=== PATIENT | female | born 1990 | race Two or more races ===

== ENCOUNTER 2024-03-26 13:23 | Outpatient (CLI) | payer OTHER | END 2024-03-26 13:35 | disposition home or self-care (01) | LOC: NST 13:23 | PROVIDERS: ATTEND Obstetrics & Gynecology Gynecology | DX: Z34.83 Encounter for supervision of other normal pregnancy, third trimester (principal) ==

== ENCOUNTER 2024-03-31 07:13 | Outpatient (CLI) | payer OTHER | END 2024-03-31 07:40 | disposition home or self-care (01) | LOC: NST 07:13 | PROVIDERS: ATTEND Obstetrics & Gynecology Gynecology | DX: Z34.83 Encounter for supervision of other normal pregnancy, third trimester (principal) ==

== ENCOUNTER 2024-04-09 09:15 | Inpatient (IN) | payer OTHER ==
[~2024-04-09] VITALS: Ht 167.6 cm; Wt 2.7 kg
[2024-04-27 16:41] VITALS: BP 117/70
[2024-04-27] MEDS ORDERED: MISOPROSTOL 25 MCG TABLET ONE (17:25)
[2024-04-27 17:29] LABS: HEMATOCRIT 36.1 % (36.0-45.00); HEMOGLOBIN 12.4 g/dL (12.0-15.00); MEAN CORPUSCULAR HEMOGLOBIN 31.5 pg (27.00-32.0); MEAN CORPUSCULAR HGB CONC 34.2 g/dl (32.0-36.0); PLATELET COUNT 234 K/uL (150-450); RED BLOOD COUNT 3.93 M/uL (4.00-6.00); RED CELL DISTRIBUTION WIDTH 14.1 % (11.5-14.5)
[2024-04-27 17:55] LABS: INR 0.96; PARTIAL THROMBOPLASTIN TIME 24.6 SECONDS (22.0-34.0); PROTHROMBIN TIME 10.5 SECONDS (9.0-11.5)
[2024-04-27 17:58] LABS: ALBUMIN 2.8 gm/dL (3.4-5.0); BILIRUBIN TOTAL 0.2 mg/dL (0.3-1.2); CALCIUM 8.7 mg/dL (8.5-10.1); CREATININE SERUM 0.57 mg/dL (0.55-1.02); GFR 120.01; GLOBULINA 3.9 G/DL (2.4-3.5); POTASSIUM 4.46 mEq/L (3.5-5.1); TOTAL PROTEIN 6.7 gm/dL (6.4-8.2)
[2024-04-27] MEDS ORDERED: PRENATAL TABLE1 EAC1 PO (18:03)
[2024-04-27] MEDS ORDERED: MISOPROSTOL 25 MCG TABLET VAG ONE (18:15)
[2024-04-27 20:26] VITALS: BP 110/64
[2024-04-27] MEDS ORDERED: MORPHINE SULFATE 4 MG/ML CARTRIDGE IV PRN (23:15)
[2024-04-27 23:26] VITALS: BP 116/76
[2024-04-28 03:12] VITALS: BP 102/54
[2024-04-28] MEDS ORDERED: OXYTOCIN 500 ML IV ONE (07:00)
[2024-04-28 07:23] VITALS: BP 116/65
[2024-04-28 12:00] VITALS: BP 114/65
[2024-04-28 15:23] VITALS: BP 115/66
[2024-04-28] MEDS ORDERED: CEFAZOLIN SODIUM 1,000 MG VIAL ONE (16:56)
[2024-04-28] MEDS ORDERED: OXYTOCIN 10 UNITS/ML VIAL IV ONE (18:00)
[2024-04-28] MEDS ORDERED: ERYTHROMYCIN BASE OPHT 1GM EACH TUBE OP ONE (18:00)
[2024-04-28] MEDS ORDERED: KETOROLAC TROMETHAMINE 30 MG VIAL IV SCH (18:03)
[2024-04-28] MEDS ORDERED: RINGERS SOLUTION,LACTATED 1,000 ML IV SCH (18:15)
[2024-04-28] MEDS ORDERED: OXYTOCIN 1,000 ML IV ONE (18:15)
[2024-04-28] MEDS ORDERED: MORPHINE SULFATE 4 MG/ML CARTRIDGE IV PRN (18:15)
[2024-04-28 20:27] VITALS: BP 108/72
[2024-04-29] MEDS ORDERED: ONDANSETRON HCL 2 MG/ML VIAL IV SCH
[2024-04-29] MEDS ORDERED: ACETAMINOPHEN 500 MG GEL..CAP PO SCH
[2024-04-29 00:39] VITALS: BP 102/67
[2024-04-29] MEDS ORDERED: GABAPENTIN 300 MG CAPSULE PO SCH (01:00)
[2024-04-29] MEDS ORDERED: SIMETHICONE 125 MG CAPSULE PO SCH (01:00)
[2024-04-29 06:54] LABS: HEMATOCRIT 31.5 % (36.0-45.00); HEMOGLOBIN 11.2 g/dL (12.0-15.00); MEAN CELL VOLUME 90.3 fL (80.00-100.00); MEAN CORPUSCULAR HEMOGLOBIN 32.1 pg (27.00-32.0); MEAN CORPUSCULAR HGB CONC 35.5 g/dl (32.0-36.0); PLATELET COUNT 208 K/uL (150-450); RED BLOOD COUNT 3.49 M/uL (4.00-6.00)
[2024-04-29] MEDS ORDERED: KETOROLAC TROMETHAMINE 10 MG TABLET PO SCH (08:00)
[2024-04-29] MEDS ORDERED: DOCUSATE SODIUM 100MG CAP PO SCH (09:00)
[2024-04-29 16:07] VITALS: BP 114/75
[2024-04-30 01:13] VITALS: BP 102/69
[2024-04-30 09:08] VITALS: BP 106/60
== END 2024-04-30 16:06 | disposition home or self-care (01) | DRG 788 ==
LOC: LDR 04-22 09:15 → OB/GYN 04-28 16:52
PROVIDERS: Obstetrics & Gynecology; ADMIT Obstetrics & Gynecology Gynecology; ATTEND Obstetrics & Gynecology Gynecology
PROC: 3E0P7VZ Introduction of Hormone into Female Reproductive, Via Natural or Artificial Opening (ICD-10-PCS; 2024-04-27)
PROC: 4A1HXCZ Monitoring of Products of Conception, Cardiac Rate, External Approach (ICD-10-PCS; 2024-04-27)
PROC: 3E033VJ Introduction of Other Hormone into Peripheral Vein, Percutaneous Approach (ICD-10-PCS; 2024-04-28)
PROC: 10D00Z1 Extraction of Products of Conception, Low, Open Approach (ICD-10-PCS; principal; 2024-04-28 17:30)
DX: O61.0 Failed medical induction of labor (principal); Z3A.40 40 weeks gestation of pregnancy; Z37.0 Single live birth; Z20.822 Contact with and (suspected) exposure to COVID-19

== ENCOUNTER 2024-04-16 09:40 | Outpatient (CLI) | payer OTHER | END 2024-04-16 10:19 | disposition home or self-care (01) | LOC: NST 09:40 | PROVIDERS: ATTEND Obstetrics & Gynecology Maternal & Fetal Medicine | DX: Z34.83 Encounter for supervision of other normal pregnancy, third trimester (principal) ==

== ENCOUNTER 2024-04-20 09:55 | Outpatient (CLI) | payer OTHER ==
[2024-04-20 10:20] VITALS: BP 90/51
== END 2024-04-20 10:35 | disposition home or self-care (01) ==
LOC: NST 09:55
PROVIDERS: ATTEND Obstetrics & Gynecology
DX: Z34.83 Encounter for supervision of other normal pregnancy, third trimester (principal)

== ENCOUNTER 2024-04-23 09:55 | Outpatient (CLI) | payer OTHER | END 2024-04-23 11:36 | disposition home or self-care (01) | LOC: NST 09:55 | PROVIDERS: ATTEND Obstetrics & Gynecology | DX: Z34.83 Encounter for supervision of other normal pregnancy, third trimester (principal) ==